=== PATIENT | female | born 1995 | race Caucasian/White ===

== ENCOUNTER 2017-07-10 12:42 | Emergency (ER) | payer OTHER ==
[~2017-07-10] VITALS: Ht 152.4 cm; Wt 65.8 kg
--- NOTE | 2017-07-10 13:00 | PHYS DOC ---
Adult General Chief Complaint Chief Complaint: ALLERGIC REACTION HPI HPI 22-year-old female presents with possible allergic reaction to amoxicillin. She' s been on it for 6 days. She woke up this morning at 11 AM with an erythematous rash all over her body. She has some mild throat tightness, but no difficulty breathing or swallowing. She has never had an allergic reaction like this in the past. She denies fever, chills, constipation, diarrhea, cough, shortness of breath. Review of Systems Review of Systems Constitutional: Denies fever or chills [] Eyes: Denies change in visual acuity, redness, or eye pain [] HENT: Denies nasal congestion or sore throat [] Respiratory: Denies cough or shortness of breath [] Cardiovascular: No additional information not addressed in HPI [] GI: Denies abdominal pain, nausea, vomiting, bloody stools or diarrhea [] : Denies dysuria or hematuria [] Musculoskeletal: Denies back pain or joint pain [] Integument: Denies rash or skin lesions [] Neurologic: Denies headache, focal weakness or sensory changes [] Endocrine: Denies polyuria or polydipsia [] All other systems were reviewed and found to be within normal limits, except as documented in this note. Physical Exam Physical Exam Constitutional: Well developed, well nourished, no acute distress, non-toxic appearance. [] HENT: Normocephalic, atraumatic, bilateral external ears normal, oropharynx moist, no oral exudates, nose normal. [] Eyes: PERRLA, EOMI, conjunctiva normal, no discharge. [] Neck: Normal range of motion, no tenderness, supple, no stridor. [] Cardiovascular:Heart rate regular rhythm, no murmur [] Lungs & Thorax: Bilateral breath sounds clear to auscultation [] Abdomen: Bowel sounds normal, soft, no tenderness, no masses, no pulsatile masses. [] Skin: Warm, dry, diffuse erythematous rash consisting of separate and confluent macules. [] Back: No tenderness, no CVA tenderness. [] Extremities: No tenderness, no cyanosis, no clubbing, ROM intact, no edema. [] Neurologic: Alert and oriented X 3, normal motor function, normal sensory function, no focal deficits noted. [] Psychologic: Affect normal, judgement normal, mood normal. [] EKG EKG [] Radiology/Procedures Radiology/Procedures [] Course & Med Decision Making Course & Med Decision Making Pertinent Labs and Imaging studies reviewed. (See chart for details) The patient was given 125 of Solu-Medrol and 50 of Benadryl by IV. This significant improved her symptoms. She denied any feeling of throat narrowing or swelling. The erythematous rash began to fade. I have advised that she take Benadryl and Pepcid as needed for itching and rash. [] Dragon Disclaimer Dragon Disclaimer This electronic medical record was generated, in whole or in part, using a voice recognition dictation system. Departure Departure: Referrals: DENNIS LOREDO MD (PCP) NARA WILSON DO July 10, 2017 13:00
[2017-07-10] MEDS ORDERED: diphenhydrAMINE 50 MG/ML VIAL IVP ONE (13:30)
[2017-07-10] MEDS ORDERED: FAMOTIDINE 20 MG TABLET PO ONE (13:30)
[2017-07-10 14:12] VITALS: BP 107/59
[2017-07-10] MEDS ORDERED: methylPREDNISolone SOD SUCC PF 125 MG/2 ML VIAL. IV ONE (14:15)
== END 2017-07-10 14:41 | disposition home or self-care (01) ==
LOC: ER 12:42
DX: L53.8 Other specified erythematous conditions (principal); R21 Rash and other nonspecific skin eruption; R07.0 Pain in throat
CPT/HCPCS: 96374; 96375; 99284; J1200; J2930

== ENCOUNTER 2018-02-26 20:02 | Emergency (ER) | payer OTHER ==
[~2018-02-26] VITALS: Ht 152.4 cm; Wt 65.5 kg
[2018-02-26 20:02] VITALS: BP 110/69
--- NOTE | 2018-02-26 20:07 | ED.ADGEN ---
Past History Past Medical History: No Pertinent History Past Surgical History: Tonsillectomy, Other Alcohol Use: None Drug Use: None Adult General Chief Complaint Chief Complaint ".. I got a really sore throat..." HPI HPI Patient is a 22 year old female who presents with above hx and complaints of severe pharyngitis which has been present the last couple days. Patient denies any history immunosuppression. Patient denies any specific ill contacts. Patient denies any travel. Patient does complain of subjective fevers. Patient is normally healthy. Review of Systems Review of Systems Constitutional: Subjective history of fever Eyes: Denies change in visual acuity, redness, or eye pain [] HENT: History of sore throat [] Respiratory: Denies cough or shortness of breath [] Cardiovascular: No additional information not addressed in HPI [] GI: Denies abdominal pain, nausea, vomiting, bloody stools or diarrhea [] : Denies dysuria or hematuria [] Musculoskeletal: Denies back pain or joint pain [] Integument: Denies rash or skin lesions [] Neurologic: Denies headache, focal weakness or sensory changes [] Endocrine: Denies polyuria or polydipsia [] All other systems were reviewed and found to be within normal limits, except as documented in this note. Family History Family History Noncontributory Current Medications Current Medications Current Medications Medications (Trade) Dose Ordered Sig/Tao Start Time Stop Time Status Last Admin Dose Admin Acetaminophen (Tylenol) 1,000 mg 1X ONCE 02/26/18 21:45 02/26/18 21:46 DC 02/26/18 21:46 1,000 MG Ibuprofen (Motrin) 800 mg STK-MED ONCE 02/26/18 21:42 02/26/18 21:43 DC Allergies Allergies Allergies Coded Allergies Type Severity Reaction Last Updated Verified amoxicillin Allergy Intermediate Rash 07/10/17 Yes Physical Exam Physical Exam Constitutional: Well developed, well nourished, moderately acute distress, non- toxic appearance. [] HENT: Normocephalic, atraumatic, bilateral external ears normal, oropharynx moist and injected pharynx, no oral exudates, nose clear rhinorrhea Eyes: PERRLA, EOMI, conjunctiva normal, no discharge. [] Neck: Normal range of motion, no tenderness, supple, no stridor. [] Cardiovascular:Heart rate regular rhythm, no murmur [] Lungs & Thorax: Bilateral breath sounds clear to auscultation [] Abdomen: Bowel sounds normal, soft, no tenderness, no masses, no pulsatile masses. [] Skin: Warm, dry, no erythema, no rash. [] Back: No tenderness, no CVA tenderness. [] Extremities: No tenderness, no cyanosis, no clubbing, ROM intact, no edema. [] Neurologic: Alert and oriented X 3, normal motor function, normal sensory function, no focal deficits noted. [] Psychologic: Affect anxious ,judgement normal, mood normal. [] Current Patient Data Vital Signs Vital Signs Date Time Temp Pulse Resp B/P (MAP) Pulse Ox O2 Delivery O2 Flow Rate FiO2 02/26/18 22:20 103.1 131 22 100 Room Air Lab Results Laboratory Tests Test 02/26/18 20:55 Influenza Type A (Rapid) Negative (NEGATIVE) Influenza Type B (Rapid) Negative (NEGATIVE) Group A Streptococcus Rapid Negative (NEGATIVE) EKG EKG [] Radiology/Procedures Radiology/Procedures [] Course & Med Decision Making Course & Med Decision Making Pertinent Labs and Imaging studies reviewed. (See chart for details). Gargle with Listerine 4 times a day. Take Tylenol and ibuprofen for discomfort. For marked discomfort may take Vicoprofen. Liquid Benadryl 25 mg up to every 4 hours may be helpful for topical relief of pain. Follow-up primary care. Return if any concerns. [] Final Impression Final Impression 1. Viral Syndrome[] 2. Viral pharyngitis Dragon Disclaimer Dragon Disclaimer This electronic medical record was generated, in whole or in part, using a voice recognition dictation system. Dragon Disclaimer This chart was dictated in whole or in part using Voice Recognition software in a busy, high-work load, and often noisy Emergency Department environment. It may contain unintended and wholly unrecognized errors or omissions. Discharge Summary Visit Information Final Diagnosis Problems Medical Problems: (1) Viral pharyngitis Status: Acute (2) Viral syndrome Status: Acute Brief Hospital Course Allergies Allergies Coded Allergies Type Severity Reaction Last Updated Verified amoxicillin Allergy Intermediate Rash 07/10/17 Yes Vital Signs Vital Signs Date Time Temp Pulse Resp B/P (MAP) Pulse Ox O2 Delivery O2 Flow Rate FiO2 02/26/18 22:20 103.1 131 22 100 Room Air Lab Results Laboratory Tests Test 02/26/18 20:55 Influenza Type A (Rapid) Negative (NEGATIVE) Influenza Type B (Rapid) Negative (NEGATIVE) Group A Streptococcus Rapid Negative (NEGATIVE) Brief Hospital Course Ms. Romero is a 22 old female who presented with viral pharyngitis. Discharge Information Condition at Discharge: Stable Disposition/Orders: D/C to Home Dischare Medications Current Medications Acetaminophen (Tylenol) 1,000 mg 1X ONCE PO Last administered on 02/26/18at 21 :46; Admin Dose 1,000 MG; Start 02/26/18 at 21:45; Stop 02/26/18 at 21:46; Status DC Ibuprofen (Motrin) 800 mg 1X ONCE PO Last administered on 02/26/18at 21:45; Admin Dose 800 MG; Start 02/26/18 at 21:45; Stop 02/26/18 at 21:46; Status DC Ibuprofen (Motrin) 800 mg STK-MED ONCE PO ; Start 02/26/18 at 21:42; Stop at 21:43; Status DC Active Scripts Active Hydrocodone-Ibuprofen 7.5-200 (Hydrocodone/Ibuprofen) 1 Each Tablet 1 Tab PO PRN Q6HRS PRN KIRBY AUSTIN MD Feb 26, 2018 20:07
[2018-02-26] MEDS ORDERED: HYDR-1179 PO (21:26)
[2018-02-26 21:38] LABS: INFLUENZA A PATIENT NEGATIVE (NEGATIVE); INFLUENZA B PATIENT NEGATIVE (NEGATIVE)
[2018-02-26] MEDS ORDERED: IBUPROFEN 800 MG TABLET. PO ONE (21:42)
[2018-02-26] MEDS ORDERED: IBUPROFEN 400 MG TABLET. PO ONE (21:45)
[2018-02-26] MEDS ORDERED: ACETAMINOPHEN 500 MG TABLET PO ONE (21:45)
== END 2018-02-26 22:28 | disposition home or self-care (01) ==
LOC: ER 20:02
DX: J02.8 Acute pharyngitis due to other specified organisms (principal); B34.9 Viral infection, unspecified; Z88.1 Allergy status to other antibiotic agents; Z90.89 Acquired absence of other organs
CPT/HCPCS: 87070; 87804; 87880; 99283

== ENCOUNTER 2019-01-06 22:09 | Emergency (ER) | payer OTHER ==
[~2019-01-06] VITALS: Ht 152.4 cm; Wt 68.1 kg
[~2019-01-06 22:09] MED LIST: HYDR-1179 PO
--- NOTE | 2019-01-06 22:37 | PHYS DOC ---
Past History Past Medical History: No Pertinent History Past Surgical History: Tonsillectomy, Other Smoking: Non-smoker Alcohol Use: None Drug Use: None Adult General Chief Complaint Chief Complaint: ABDOMINAL PAIN HPI HPI Patient is a 23-year-old female presents with right upper quadrant abdominal pain. She has had previous issues with this, equivocal ultrasound provided by [facility]. She is not currently on any medicines for her gallbladder. Today's episode started shortly after eating a happy meal around noon today. Previously the pain has subsided on its own but it is not subsiding tonight. No nausea or vomiting. No migration of the pain. Nothing seems to make the pain better or worse. No previous abdominal surgery. She has taken no medicine for this discomfort. Pain is moderate in intensity.[] Review of Systems Review of Systems Constitutional: Denies fever or chills [] Eyes: Denies change in visual acuity, redness, or eye pain [] HENT: Denies nasal congestion or sore throat [] Respiratory: Denies cough or shortness of breath [] Cardiovascular: No chest pain or palpitations[] GI: See history of present illness, no diarrhea or bloody stools[] : Denies dysuria or hematuria [] Musculoskeletal: Denies back pain or joint pain [] Integument: Denies rash or skin lesions [] Neurologic: Denies headache, focal weakness or sensory changes [] Endocrine: Denies polyuria or polydipsia [] All other systems were reviewed and found to be within normal limits, except as documented in this note. Allergies Allergies Allergies Coded Allergies Type Severity Reaction Last Updated Verified amoxicillin Allergy Intermediate Rash 07/10/17 Yes Physical Exam Physical Exam Constitutional: Well developed, well nourished, no acute distress, non-toxic appearance. [] HENT: Normocephalic, atraumatic, bilateral external ears normal, oropharynx moist, no oral exudates, nose normal. [] Eyes: PERRLA, EOMI, conjunctiva normal, no discharge. [] Neck: Normal range of motion, no tenderness, supple, no stridor. [] Cardiovascular:Heart rate regular rhythm, no murmur [] Lungs & Thorax: Bilateral breath sounds clear to auscultation [] Abdomen: Bowel sounds normal, soft, mild right upper quadrant tenderness without rebound, no guarding, no rigidity, no masses, no pulsatile masses. [] Skin: Warm, dry, no erythema, no rash. [] Back: No tenderness, no CVA tenderness. [] Extremities: No tenderness, no cyanosis, no clubbing, ROM intact, no edema. [] Neurologic: Alert and oriented X 3, normal motor function, normal sensory function, no focal deficits noted. [] Psychologic: Affect normal, judgement normal, mood normal. [] Current Patient Data Lab Results Laboratory Tests Test 01/06/19 22:18 POC Urine HCG, Qualitative hcg negative (Negative) EKG EKG [] Radiology/Procedures Radiology/Procedures PROCEDURE: ABDOMEN COMPLETE Complete abdominal ultrasound dated 01/06/2019. No comparison available. CLINICAL INDICATION: Right upper quadrant pain. FINDINGS: Liver is homogeneous in echogenicity. No focal hepatic mass. Intrahepatic and extra hepatic biliary tree normal in caliber. Common bile duct measures 3 mm. Gallbladder is contracted and not well evaluated. The wall is upper limits of normal in thickness measuring 3 mm. No pericholecystic fluid. No gallstones are seen. Right kidney measures 9.7 cm in length. Left kidney measures 10.0 cm in length. No hydronephrosis. Spleen is homogeneous in echogenicity and measures 11.8 cm longitudinal dimension. Limited visualized portions of pancreas aorta and IVC unremarkable. No significant ascites. IMPRESSION: 1. No acute sonographic abnormality. 2. Limited evaluation of the gallbladder.[] Course & Med Decision Making Course & Med Decision Making Pertinent Labs and Imaging studies reviewed. (See chart for details) ED course: Patient arrived, was placed in bed, and tolerated exam well. She received pain medicine and smooth muscle relaxants which significantly improved her discomfort. She was transported to and from [facility] with any co mplications. After the return of laboratory and imaging findings, these were discussed with the patient who voiced understanding. All questions were answered. She was discharged in improved condition. Medical decision making: Patient appears to still have a contracted gallbladder on ultrasound despite her last meal being more than 6 hours prior to arrival. There is no evidence of oral intake intolerance, no evidence of obstructing stone, no evidence of pancreatitis. She will need follow-up with an outpatient HIDA scan or equivalent evaluation of the gallbladder which can be arranged by her primary care team.[] Dragon Disclaimer Dragon Disclaimer This electronic medical record was generated, in whole or in part, using a voice recognition dictation system. Departure Departure: Impression: Primary Impression: Right upper quadrant abdominal pain Disposition: 01 HOME, SELF-CARE Condition: IMPROVED Referrals: GENARO ABURTO DO (PCP) Follow-up in 2 days Patient Instructions: Abdominal Pain Additional Instructions: Avoid fatty foods. Follow-up with your regular doctor in 2 days. You will probably need to have a functional test of the gallbladder such as a HIDA scan. This can be arranged by your primary care team. Return to the ER if worsening pain, unable to tolerate liquids, or any other concerns. Scripts Ondansetron Hcl (ZOFRAN) 4 Mg Tablet 1 TAB PO Q6HRS for nausea or vomiting, #20 TAB Prov: LUCI SALAS DO 01/07/19 Meloxicam (MELOXICAM) 7.5 Mg Tablet 7.5 MG PO DAILY for PAIN, #20 TAB Prov: LUCI SALAS DO 01/07/19 Hyoscyamine Sulfate (LEVSIN) 0.125 Mg Tablet 0.125 MG PO QID for abdominal pain/cramping, #30 TAB Prov: LUCI SALAS DO 01/07/19 LUCI SALAS DO Jan 06, 2019 22:37
[2019-01-06 23:00] LABS: BASO # 0.1 x10^3/uL (0.0-0.2); BASO % 1 % (0-3); EOS # 0.2 x10^3/uL (0.0-0.7); EOS % 2 % (0-3); HEMATOCRIT 42.7 % (36.0-47.0); HEMOGLOBIN 13.9 g/dL (12.0-15.5); LYMPH # 2.9 x10^3/uL (1.0-4.8); LYMPH % 33 % (24-48); MEAN CORPUSCULAR HEMOGLOBIN 29 pg (25-35); MEAN CORPUSCULAR HGB CONC 33 g/dL (31-37); MEAN CORPUSCULAR VOLUME 89 fL (79-100); MONO # 0.8 x10^3/uL (0.0-1.1); MONO % 9 % (0-9); NEUT # 4.9 x10^3uL (1.8-7.7); NEUT % 55 % (31-73); PLATELET COUNT 338 x10^3/uL (140-400); RED BLOOD COUNT 4.81 x10^6/uL (3.50-5.40); RED CELL DISTRIBUTION WIDTH 13.8 % (11.5-14.5); WHITE BLOOD COUNT 8.8 x10^3/uL (4.0-11.0)
[2019-01-06] MEDS ORDERED: HYOSCYAMINE 0.125 MG TAB.RAPDIS PO ONE (23:00)
[2019-01-06] MEDS ORDERED: KETOROLAC 30 MG/ML VIAL. IVP ONE (23:00)
[2019-01-06] MEDS ORDERED: IV NORMAL SALINE 1,000ML 1,000 ML IV SCH (23:00)
[2019-01-06] MEDS ORDERED: ONDANSETRON PF 4 MG/2 ML VIAL. IVP ONE (23:00)
[2019-01-06 23:06] LABS: BACTERIA,URINE 0 /HPF (0-FEW); BILIRUBIN,URINE NEG (NEG); CLARITY,URINE CLEAR; COLOR,URINE YELLOW; GLUCOSE,URINE NEG (NEG); NITRITE,URINE NEG (NEG); RBC,URINE OCC /HPF (0-2); SQUAMOUS EPITHELIAL CELL,UR MANY /LPF; UROBILINOGEN,URINE 0.2 mg/dL (0.2 mg/dL); WBC,URINE OCC /HPF (0-4)
[2019-01-06 23:13] LABS: ALBUMIN 3.6 g/dL (3.4-5.0); CALCIUM 8.9 mg/dL (8.5-10.1); CREATININE 0.8 mg/dL (0.6-1.0); GFR 88.9; POTASSIUM 3.8 mmol/L (3.5-5.1); TOTAL BILIRUBIN 0.1 mg/dL (0.2-1.0); TOTAL PROTEIN 7.1 g/dL (6.4-8.2)
[2019-01-06 23:52] VITALS: BP 97/61
--- NOTE | 2019-01-06 23:57 | RAD ---
Complete abdominal ultrasound dated 01/06/2019. No comparison available. CLINICAL INDICATION: Right upper quadrant pain. FINDINGS: Liver is homogeneous in echogenicity. No focal hepatic mass. Intrahepatic and extra hepatic biliary tree normal in caliber. Common bile duct measures 3 mm. Gallbladder is contracted and not well evaluated. The wall is upper limits of normal in thickness measuring 3 mm. No pericholecystic fluid. No gallstones are seen. Right kidney measures 9.7 cm in length. Left kidney measures 10.0 cm in length. No hydronephrosis. Spleen is homogeneous in echogenicity and measures 11.8 cm longitudinal dimension. Limited visualized portions of pancreas aorta and IVC unremarkable. No significant ascites. IMPRESSION: 1. No acute sonographic abnormality. 2. Limited evaluation of the gallbladder. Electronically signed by: Rohit Crawford MD (01/06/2019 11:54 PM) [facility]
[2019-01-07] MEDS ORDERED: MELO7.5T29 PO
[2019-01-07] MEDS ORDERED: HYOS0.1264 PO
[2019-01-07] MEDS ORDERED: ONDA4TAB7 PO
== END 2019-01-07 00:05 | disposition home or self-care (01) ==
LOC: ER 22:09
DX: R10.11 Right upper quadrant pain (principal); Z88.1 Allergy status to other antibiotic agents
CPT/HCPCS: 36415; 76700; 80053; 81001; 81025; 83690; 85025; 96374; 96375; 99285; J1885; J2405; J7030